=== PATIENT | male | born 1985 | race African-American/Black ===

== ENCOUNTER 2019-07-03 14:34 | Inpatient (IN) | payer MEDICARE, MEDICAID ==
[~2019-07-03] VITALS: Ht 172.7 cm; Wt 74.8 kg
--- NOTE | 2019-07-03 15:05 | NUR ---
ED Nurse Note: Pt [facility] [place] for R hip skin evaluation, open wound x 6 months. ao4. nad. vss.
--- NOTE | 2019-07-03 15:10 | NUR ---
ED Nurse Note: iv access established. blood and urine collected; sent down to lab.
[2019-07-03 15:26] VITALS: BP 114/74
[2019-07-03 15:38] LABS: BASOPHILS % (AUTO) 2.5 % (0.0-2.0); EOSINOPHILS % (AUTO) 8.8 % (0.0-3.0); HEMATOCRIT 41.2 % (42.0-52.0); HEMOGLOBIN 13.8 G/DL (14.2-18.0); LYMPHOCYTES % (AUTO) 45.6 % (20.0-45.0); MEAN CORPUSCULAR VOLUME 85 FL (80-99); MONOCYTES % (AUTO) 7.5 % (1.0-10.0); NEUTROPHILS % (AUTO) 35.6 % (45.0-75.0); PLATELET COUNT 239 K/UL (150-450); RED BLOOD COUNT 4.85 M/UL (4.70-6.10); RED CELL DISTRIBUTION WIDTH 12.5 % (11.6-14.8); WHITE BLOOD COUNT 5.2 K/UL (4.8-10.8)
--- NOTE | 2019-07-03 15:43 | Emergency Room Report ---
History of Present Illness General Chief Complaint: Skin Rash/Abscess Source: Patient Present Illness HPI 33-year-old male history of HIV history of BKA presents with chronic right hip ulcer x4 months, patient denies any acute change no fever no chills, no pain, patient was sent in from assisted living facility to evaluate his ulcer they were concerned. Patient with no pain, no aggravating or relieving factors severity is none. Allergies: Coded Allergies: EGG (Verified Allergy, Unknown, 07/03/19) RISPERIDONE (Verified Allergy, Unknown, 07/03/19) Patient History Past Medical History: see triage record Reviewed Nursing Documentation: PMH: Agreed; PSxH: Agreed Nursing Documentation-PMH Past Medical History: No History, Except For Review of Systems All Other Systems: negative except mentioned in HPI Physical Exam Vital Signs Date Time Temp Pulse Resp B/P (MAP) Pulse Ox O2 Delivery O2 Flow Rate FiO2 07/03/19 14:39 98.2 115 20 112/73 (86) 98 Room Air Sp02 EP Interpretation: reviewed, normal General Appearance: well appearing, no apparent distress, alert Head: normocephalic, atraumatic Eyes: bilateral eye PERRL, bilateral eye EOMI ENT: uvula midline, moist mucus membranes Neck: supple, thyroid normal, supple/symm/no masses Respiratory: lungs clear, no respiratory distress, no retraction, no accessory muscle use Cardiovascular #1: normal peripheral pulses, regular rate, rhythm, no edema, no gallop, no murmur Gastrointestinal: non tender, soft, no guarding, no rebound Musculoskeletal: normal inspection Neurologic: alert, oriented x3 Psychiatric: mood/affect normal Skin: warm/dry, other - Right hip: 6 x 2 cm ulcer, stage I, there is a punctate wound in the middle of it, probe did not hit bone Medical Decision Making Diagnostic Impression: Primary Impression: Decubitus ulcer of right hip Qualified Codes: L89.212 - Pressure ulcer of right hip, stage 2 Additional Impressions: UTI (urinary tract infection) Qualified Codes: N30.00 - Acute cystitis without hematuria Osteomyelitis hip ER Course Patient with chronic right hip ulcer, CRP evaluate for possible osteomyelitis, x -ray shows no acute pathology, patient denies any drainage from the site, wound was probed, does not hit bone. XR negative Patient with mildly elevated CRP. ESR may be chronically elevated hx of BKA, and surgery to right hip ulcer Patient with possible osteomyelitis Will admit patient to Dr. Araiza who works with primary doctor. Patient admitted Laboratory Tests Test 07/03/19 15:20 07/03/19 16:15 White Blood Count 5.2 K/UL (4.8-10.8) Red Blood Count 4.85 M/UL (4.70-6.10) Hemoglobin 13.8 G/DL (14.2-18.0) L Hematocrit 41.2 % (42.0-52.0) L Mean Corpuscular Volume 85 FL (80-99) Mean Corpuscular Hemoglobin 28.5 PG (27.0-31.0) Mean Corpuscular Hemoglobin Concent 33.5 G/DL (32.0-36.0) Red Cell Distribution Width 12.5 % (11.6-14.8) Platelet Count 239 K/UL (150-450) Mean Platelet Volume 8.3 FL (6.5-10.1) Neutrophils (%) (Auto) 35.6 % (45.0-75.0) L Lymphocytes (%) (Auto) 45.6 % (20.0-45.0) H Monocytes (%) (Auto) 7.5 % (1.0-10.0) Eosinophils (%) (Auto) 8.8 % (0.0-3.0) H Basophils (%) (Auto) 2.5 % (0.0-2.0) H Erythrocyte Sedimentation Rate 65 MM/HR (0-15) H Sodium Level 138 MMOL/L (136-145) Potassium Level 3.7 MMOL/L (3.5-5.1) Chloride Level 103 MMOL/L (98-107) Carbon Dioxide Level 29 MMOL/L (21-32) Anion Gap 6 mmol/L (5-15) Blood Urea Nitrogen 7 mg/dL (7-18) Creatinine 0.8 MG/DL (0.55-1.30) Estimate Glomerular Filtration Rate > 60 mL/min (>60) Glucose Level 77 MG/DL (74-106) Calcium Level 8.8 MG/DL (8.5-10.1) Total Bilirubin 0.2 MG/DL (0.2-1.0) Aspartate Amino Transferase (AST) 21 U/L (15-37) Alanine Aminotransferase (ALT) 10 U/L (12-78) L Alkaline Phosphatase 99 U/L (46-116) C-Reactive Protein, Quantitative 2.4 mg/dL (0.00-0.90) H Total Protein 8.5 G/DL (6.4-8.2) H Albumin 3.0 G/DL (3.4-5.0) L Globulin 5.5 g/dL Albumin/Globulin Ratio 0.5 (1.0-2.7) L EKG Diagnostic Results EKG Time: 15:13 EP Interpretation: NSR, rate 95, QTc 449, no acute ST elevations, normal axis Rhythm Strip Diag. Results Rhythm Strip Time: 16:48 EP Interpretation: yes Rate: 94 Rhythm: NSR, no PVC's, no ectopy Other X-Ray Diagnostic Results Other X-Ray Diagnostic Results : X-Ray ordered: Right hip # of Views/Limited Vs Complete: 2 View Indication: Pain EP Interpretation: Yes Interpretation: no fractures Impression: No acute disease Electronically Signed by: Rober Perez MD Last Vital Signs Date Time Temp Pulse Resp B/P (MAP) Pulse Ox O2 Delivery O2 Flow Rate FiO2 07/03/19 15:26 98.2 100 20 114/74 100 Room Air Disposition: ADMITTED INPATIENT Condition: Stable Rober Perez MD Jul 03, 2019 15:43
--- NOTE | 2019-07-03 15:59 | Diagnostic Imaging Report ---
Indication: Reason For Exam: PAIN Technique: One or 2 views of the right hip Comparison: none Findings: Exam is limited due to inability of the patient to cooperate optimally. No definite acute fractures. No dislocations. The joint spaces are preserved. Impression: Limited; no definite acute process
--- NOTE | 2019-07-03 16:22 | NUR ---
ED Nurse Note: lab reported blood hemolyzed; nuvia repeat labs; sent down to lab.
[2019-07-03 16:41] VITALS: BP 122/74
[2019-07-03 16:54] LABS: ANION GAP 6 mmol/L (5-15); BLOOD UREA NITROGEN 7 mg/dL (7-18); CALCIUM 8.8 MG/DL (8.5-10.1); CARBON DIOXIDE 29 MMOL/L (21-32); CHLORIDE 103 MMOL/L (98-107); CREATININE 0.8 MG/DL (0.55-1.30); POTASSIUM 3.7 MMOL/L (3.5-5.1); SODIUM 138 MMOL/L (136-145)
[2019-07-03 16:59] LABS: ALANINE AMINOTRANSFERASE 10 U/L (12-78); ALBUMIN/GLOBULIN RATIO 0.5 (1.0-2.7); ALKALINE PHOSPHATASE 99 U/L (46-116); ASPARTATE AMINO TRANSFERASE 21 U/L (15-37); BILIRUBIN,TOTAL 0.2 MG/DL (0.2-1.0)
--- NOTE | 2019-07-03 17:29 | NUR ---
ED Nurse Note: PER ERMD PT CLEARED FOR DISCHARGE. SPOKE TO [facility]; ETA 2050
--- NOTE | 2019-07-03 17:35 | NUR ---
ED Nurse Note: SPOKE TO [facility]. NOTIFIED PT CLEARED FOR DISCHARGE AND WILL BE RETURNING
[2019-07-03 18:04] LABS: APPEARANCE,URINE VERY CLOUDY; BILIRUBIN, URINE NEGATIVE (NEGATIVE); GLUCOSE, URINE (UA) NEGATIVE (NEGATIVE); KETONES,URINE NEGATIVE (NEGATIVE); LEUKOCYTE ESTERASE ,URINE 3+ (NEGATIVE); NITRITE,URINE POSITIVE (NEGATIVE); PH,URINE 9 (4.5-8.0); PROTEIN,URINE 2+ (NEGATIVE); UROBILINOGEN,URINE NORMAL MG/DL (0.0-1.0)
[2019-07-03 18:05] LABS: COLOR,URINE YELLOW
[2019-07-03] MEDS ORDERED: MIRALAX17 G2 ORAL (18:21)
[2019-07-03] MEDS ORDERED: ASCORBIC ACID500 MG ORAL (18:21)
[2019-07-03] MEDS ORDERED: ZINC50 M2 ORAL (18:21)
[2019-07-03] MEDS ORDERED: COLACE100 MG ORAL (18:21)
[2019-07-03] MEDS ORDERED: ZYPREXA10 MG ORAL (18:21)
[2019-07-03] MEDS ORDERED: MULTIVITAMINS1 EAC2 ORAL (18:21)
[2019-07-03] MEDS ORDERED: FERROUS SULFAT325 MG ORAL (18:21)
--- NOTE | 2019-07-03 18:41 | NUR ---
ED Nurse Note: VRE CRE MRSA SWABS COLLECTED; SENT DOWN TO LAB. WOUND CARE PICTURE TAKEN OF RIGHT HIP; UPLOADED. RIGHT BKA NOTED. BELONGINGS LIST COMPLETED WITH PT.
[2019-07-03] MEDS ORDERED: cefTRIAXone 1 GM in NS 55 ML IVPB ONE (18:45)
--- NOTE | 2019-07-03 19:00 | NUR ---
ED Nurse Note: CALLED FOR REPORT. RECEIVING RN, CHOL, NOT READY FOR REPORT. WILL CALL BACK.
[2019-07-03 19:15] VITALS: BP 136/78
--- NOTE | 2019-07-03 19:25 | NUR ---
TRANSFER TO FLOOR: Patient transferred to [facility] 409-1 as ordered, per MD BRANDON. Report given to PHILIPPE MCLAUGHLIN. PATIENT IN STABLE CONDITION. BELONGINGS SENT WITH PATIENT.
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
[2019-07-03 20:00] VITALS: BP 129/78
--- NOTE | 2019-07-03 20:20 | NUR ---
NURSE NOTES: Obtained new admit order from Dr. Araiza. For Wound consult physician, Dr. Araiza says "Don't worry, I will take care of it".
[2019-07-03] MEDS ORDERED: HYDROcodone/Acetamin 5/325 tab ORAL PRN (20:30)
[2019-07-03] MEDS ORDERED: HYDROcodone/Acetamin 10/325 tab ORAL PRN (20:30)
[2019-07-03] MEDS ORDERED: Miralax 17gm pkt ORAL PRN (20:45)
[2019-07-03] MEDS: Heparin 5000 units/ml inj SUBQ SCH (21:06)
[2019-07-04] VITALS: BP 124/82
[2019-07-04 04:00] VITALS: BP 131/74
[2019-07-04] MEDS: cefTRIAXone 1 GM in D5W 55 ML IVPB SCH ×2 (05:11→17:03)
[2019-07-04 06:45] LABS: BASOPHILS % (AUTO) 1.7 % (0.0-2.0); EOSINOPHILS % (AUTO) 7.7 % (0.0-3.0); HEMATOCRIT 37.2 % (42.0-52.0); HEMOGLOBIN 11.9 G/DL (14.2-18.0); LYMPHOCYTES % (AUTO) 50.9 % (20.0-45.0); MEAN CORPUSCULAR VOLUME 88 FL (80-99); MONOCYTES % (AUTO) 10.4 % (1.0-10.0); NEUTROPHILS % (AUTO) 29.2 % (45.0-75.0); PLATELET COUNT 222 K/UL (150-450); RED BLOOD COUNT 4.23 M/UL (4.70-6.10); WHITE BLOOD COUNT 4.8 K/UL (4.8-10.8)
[2019-07-04 07:08] LABS: ALANINE AMINOTRANSFERASE 9 U/L (12-78); ALBUMIN 2.6 G/DL (3.4-5.0); ALBUMIN/GLOBULIN RATIO 0.6 (1.0-2.7); ALKALINE PHOSPHATASE 87 U/L (46-116); ANION GAP 5 mmol/L (5-15); ASPARTATE AMINO TRANSFERASE 13 U/L (15-37); BILIRUBIN,TOTAL 0.1 MG/DL (0.2-1.0); BLOOD UREA NITROGEN 8 mg/dL (7-18); CALCIUM 8.6 MG/DL (8.5-10.1); CARBON DIOXIDE 28 MMOL/L (21-32); CHLORIDE 109 MMOL/L (98-107); CREATININE 0.7 MG/DL (0.55-1.30); POTASSIUM 3.5 MMOL/L (3.5-5.1); SODIUM 142 MMOL/L (136-145)
--- NOTE | 2019-07-04 07:20 | NUR ---
NURSE NOTES: Received report from PHILIPPE Rodriguez. Pt in bed, awake, talkative, no complaints of pain, no apparent distress noted, wheelchair at bedside, bed in lowest position, call light within reach.
--- NOTE | 2019-07-04 07:40 | NUR ---
HAND-OFF: Report given to Diane PAEZ.
[2019-07-04 08:00] VITALS: BP 157/93
--- NOTE | 2019-07-04 08:03 | NUR ---
NURSE NOTES: Pt is asking to go outside to smoke. RN explained to pt the no smoking policy of hospital. RN called Dr. Araiza as pt is continuing to request to go outside. Left message on Dr. Araiza's electron tube assembler physician's line.
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
[2019-07-04] MEDS: Ascorbic Acid 500mg tab ORAL SCH (10:19)
[2019-07-04] MEDS: Docusate 100mg cap ORAL SCH ×2 (10:19→17:03)
[2019-07-04] MEDS: OLANZapine 10mg tab ORAL SCH (10:19)
[2019-07-04] MEDS: Zinc Sulfate 220mg cap ORAL SCH (10:19)
[2019-07-04] MEDS: Heparin 5000 units/ml inj SUBQ SCH ×2 (10:21→20:20)
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
[2019-07-04 12:00] VITALS: BP 111/83
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
--- NOTE | 2019-07-04 15:04 | NUR ---
CASE MANAGEMENT: INITIAL REVIEW 07/03/2019 33 YO Sonya JURADO FROM [facility] CC: SKIN RASH PMHx: HIV. BKA. CHRONIC RIGHT ULCER. SI:RIGHT HIP OSTEOMYELITIS. T 98.2 HR 115 RR 20 B/P 112/73 SATS 98% ON RA CL 109 TBILI 0.1 AST 13 ALT 9 IS: NS BOLUS IV X1 PATIENT ADMITTED TO 07/03/2019 @ 1831 DCP: PATIENT TO BE DISCHARGED TO HOME ONCE MEDICALLY CLEARED. PLAN OF CARE: MRI HIP RIGHT Addendum: 07/04/19 at 1631 by Katie You INTERQUAL MET
--- NOTE | 2019-07-04 15:13 | Infectious Diseases Prog Note ---
Assessment/Plan Assessment/Plan Full consult dictated: A) 1) gram neg uti 2) right hip wound, ? osteomyelitis 3) hiv P) 1) ceftriaxone 2) f/u on MRI, labs, cd4/VL 3) check labs 4) thank you Subjective Allergies: Coded Allergies: EGG (Verified Allergy, Unknown, 07/03/19) RISPERIDONE (Verified Allergy, Unknown, 07/03/19) Objective Vital Signs Last 24 Hour Vital Signs Date Time Temp Pulse Resp B/P (MAP) Pulse Ox O2 Delivery O2 Flow Rate FiO2 07/04/19 12:00 97.7 94 19 111/83 (92) 95 07/04/19 09:00 Room Air 07/04/19 08:00 97.9 89 17 157/93 (114) 96 07/04/19 04:00 98.1 68 18 131/74 (93) 98 07/04/19 01:44 Room Air 07/04/19 00:00 97.9 81 17 124/82 (96) 98 07/03/19 21:00 Room Air 07/03/19 20:00 97.6 75 18 129/78 (95) 98 07/03/19 19:27 98.2 98 17 136/78 100 Room Air 07/03/19 19:15 98.2 98 17 136/78 100 Room Air 07/03/19 16:41 98.2 100 17 122/74 100 Room Air 07/03/19 15:26 98.2 100 20 114/74 100 Room Air Height (Feet): 5 Height (Inches): 8.00 Weight (Pounds): 165 Microbiology Date/Time Source Procedure Growth Status 07/03/19 22:30 Wound Gram Stain - Final Resulted 07/03/19 22:30 Wound Wound Culture Pending Resulted 07/03/19 15:10 Urine,Clean Catch Urine Culture - Preliminary Gram Negative Bacillus 1 Resulted 07/03/19 15:30 Rectum Received Laboratory Tests Test 07/03/19 15:20 07/03/19 16:15 07/04/19 05:35 White Blood Count 5.2 K/UL (4.8-10.8) 4.8 K/UL (4.8-10.8) Red Blood Count 4.85 M/UL (4.70-6.10) 4.23 M/UL (4.70-6.10) L Hemoglobin 13.8 G/DL (14.2-18.0) L 11.9 G/DL (14.2-18.0) L Hematocrit 41.2 % (42.0-52.0) L 37.2 % (42.0-52.0) L Mean Corpuscular Volume 85 FL (80-99) 88 FL (80-99) Mean Corpuscular Hemoglobin 28.5 PG (27.0-31.0) 28.2 PG (27.0-31.0) Mean Corpuscular Hemoglobin Concent 33.5 G/DL (32.0-36.0) 32.1 G/DL (32.0-36.0) Red Cell Distribution Width 12.5 % (11.6-14.8) 13.0 % (11.6-14.8) Platelet Count 239 K/UL (150-450) 222 K/UL (150-450) Mean Platelet Volume 8.3 FL (6.5-10.1) 7.4 FL (6.5-10.1) Neutrophils (%) (Auto) 35.6 % (45.0-75.0) L 29.2 % (45.0-75.0) L Lymphocytes (%) (Auto) 45.6 % (20.0-45.0) H 50.9 % (20.0-45.0) H Monocytes (%) (Auto) 7.5 % (1.0-10.0) 10.4 % (1.0-10.0) H Eosinophils (%) (Auto) 8.8 % (0.0-3.0) H 7.7 % (0.0-3.0) H Basophils (%) (Auto) 2.5 % (0.0-2.0) H 1.7 % (0.0-2.0) Erythrocyte Sedimentation Rate 65 MM/HR (0-15) H Sodium Level 138 MMOL/L (136-145) 142 MMOL/L (136-145) Potassium Level 3.7 MMOL/L (3.5-5.1) 3.5 MMOL/L (3.5-5.1) Chloride Level 103 MMOL/L (98-107) 109 MMOL/L (98-107) H Carbon Dioxide Level 29 MMOL/L (21-32) 28 MMOL/L (21-32) Anion Gap 6 mmol/L (5-15) 5 mmol/L (5-15) Blood Urea Nitrogen 7 mg/dL (7-18) 8 mg/dL (7-18) Creatinine 0.8 MG/DL (0.55-1.30) 0.7 MG/DL (0.55-1.30) Estimat Glomerular Filtration Rate > 60 mL/min (>60) > 60 mL/min (>60) Glucose Level 77 MG/DL (74-106) 89 MG/DL (74-106) Calcium Level 8.8 MG/DL (8.5-10.1) 8.6 MG/DL (8.5-10.1) Total Bilirubin 0.2 MG/DL (0.2-1.0) 0.1 MG/DL (0.2-1.0) L Aspartate Amino Transf (AST/SGOT) 21 U/L (15-37) 13 U/L (15-37) L Alanine Aminotransferase (ALT/SGPT) 10 U/L (12-78) L 9 U/L (12-78) L Alkaline Phosphatase 99 U/L (46-116) 87 U/L (46-116) C-Reactive Protein, Quantitative 2.4 mg/dL (0.00-0.90) H Total Protein 8.5 G/DL (6.4-8.2) H 7.3 G/DL (6.4-8.2) Albumin 3.0 G/DL (3.4-5.0) L 2.6 G/DL (3.4-5.0) L Globulin 5.5 g/dL 4.7 g/dL Albumin/Globulin Ratio 0.5 (1.0-2.7) L 0.6 (1.0-2.7) L Current Medications Medications (Trade) Dose Ordered Sig/[place] Route PRN Reason Start Time Stop Time Status Last Admin Dose Admin Acetaminophen (Tylenol) 650 mg Q4H PRN ORAL Mild Pain/Temp > 100.5 07/03/19 20:30 08/02/19 20:29 Acetaminophen/ Hydrocodone Bitart ([place] 10/325) 1 tab Q6H PRN ORAL Severe Pain (Pain Scale 7-10) 07/03/19 20:30 07/10/19 20:29 Acetaminophen/ Hydrocodone Bitart ([place] 5/325) 1 tab Q6H PRN ORAL Moderate Pain (Pain Scale 4-6) 07/03/19 20:30 07/10/19 20:29 Ascorbic Acid (Vitamin C) 500 mg DAILY ORAL 07/04/19 09:00 08/03/19 08:59 07/04/19 10:19 Ceftriaxone Sodium 1 gm/ Dextrose 55 ml @ 110 mls/hr Q12H IVPB 07/04/19 06:00 07/11/19 05:59 07/04/19 05:11 Diphenhydramine HCl (Benadryl) 25 mg Q4H PRN ORAL Itching 07/03/19 20:30 08/02/19 20:29 Docusate Sodium (Colace) 100 mg TWICE A DAY ORAL 07/04/19 09:00 08/03/19 08:59 07/04/19 10:19 Ferrous Sulfate (Feosol) 325 mg DAILY ORAL 07/04/19 09:00 08/03/19 08:59 07/04/19 10:24 Heparin Sodium (Porcine) (Heparin 5000 units/ml) 5,000 units EVERY 12 HOURS SUBQ 07/03/19 21:00 08/02/19 20:59 07/04/19 10:21 Multivitamins (Multivitamins) 1 tab DAILY ORAL 07/04/19 09:00 08/03/19 08:59 07/04/19 10:19 Olanzapine (ZyPREXA) 10 mg DAILY ORAL 07/04/19 09:00 08/03/19 08:59 07/04/19 10:19 Ondansetron HCl (Zofran) 4 mg Q6H PRN IVP Nausea & Vomiting 07/03/19 20:30 08/02/19 20:29 Polyethylene Glycol (Miralax) 17 gm DAILYPRN PRN ORAL Constipation 07/03/19 20:45 08/02/19 20:44 Zinc Sulfate (Zinc Sulfate) 220 mg DAILY ORAL 07/04/19 09:00 08/03/19 08:59 07/04/19 10:19 Charlette Andersen MD Jul 04, 2019 15:13
[2019-07-04 16:00] VITALS: BP_SYST 121; BP_SYST 126; BP_DIAS 72; BP_DIAS 76
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
--- NOTE | 2019-07-04 19:12 | NUR ---
HAND-OFF: Report given to PHILIPPE Rodriguez.
--- NOTE | 2019-07-04 19:30 | NUR ---
NURSE NOTES: Received patient in no apparent distress. A&OX4. IV site patent and intact. Dressing on right hip noted, dry and intact. Patient's own wheelchair at bedside. Bed in lowest position. Call light within reach. Will continue to monitor.
[2019-07-04 20:00] VITALS: BP 127/78
[2019-07-05] VITALS (7 sets, daily range): BP systolic 104–128; BP diastolic 59–77
[2019-07-05] MEDS: cefTRIAXone 1 GM in D5W 55 ML IVPB SCH ×2 (05:16→18:04)
[2019-07-05 06:33] LABS: BASOPHILS % (AUTO) 1.1 % (0.0-2.0); EOSINOPHILS % (AUTO) 4.8 % (0.0-3.0); HEMATOCRIT 38.4 % (42.0-52.0); HEMOGLOBIN 12.1 G/DL (14.2-18.0); MEAN CORPUSCULAR VOLUME 88 FL (80-99); MONOCYTES % (AUTO) 9.6 % (1.0-10.0); NEUTROPHILS % (AUTO) 53.5 % (45.0-75.0); PLATELET COUNT 232 K/UL (150-450); RED BLOOD COUNT 4.38 M/UL (4.70-6.10); WHITE BLOOD COUNT 6.6 K/UL (4.8-10.8)
[2019-07-05 06:54] LABS: ALANINE AMINOTRANSFERASE 7 U/L (12-78); ALBUMIN 2.6 G/DL (3.4-5.0); ALBUMIN/GLOBULIN RATIO 0.6 (1.0-2.7); ALKALINE PHOSPHATASE 82 U/L (46-116); ANION GAP 9 mmol/L (5-15); ASPARTATE AMINO TRANSFERASE 11 U/L (15-37); BILIRUBIN,TOTAL 0.1 MG/DL (0.2-1.0); BLOOD UREA NITROGEN 5 mg/dL (7-18); CALCIUM 8.4 MG/DL (8.5-10.1); CARBON DIOXIDE 25 MMOL/L (21-32); CHLORIDE 107 MMOL/L (98-107); CREATININE 0.8 MG/DL (0.55-1.30); POTASSIUM 3.1 MMOL/L (3.5-5.1); SODIUM 141 MMOL/L (136-145)
--- NOTE | 2019-07-05 07:19 | NUR ---
NURSE NOTES: PATIENT RECEIVED FROM PHILIPPE MCLAUGHLIN. PATIENT SLEEPING IN BED WITH NO PHYSICAL SIGNS OF DISTRESS. PATIENT HAS RIGHT IV SITE SALINE LOCKED, DRESSING DRY AND INTACT, NO SWELLING OR SIGNS OF INFILTRATION. BED IS IN THE LOCKED AND LOWEST POSITION WITH CALL LIGHT WITHIN REACH.
[2019-07-05] MEDS: Ascorbic Acid 500mg tab ORAL SCH (10:35)
[2019-07-05] MEDS: Docusate 100mg cap ORAL SCH ×2 (10:35→18:04)
[2019-07-05] MEDS: Zinc Sulfate 220mg cap ORAL SCH (10:35)
[2019-07-05] MEDS: OLANZapine 10mg tab ORAL SCH (10:35)
[2019-07-05] MEDS: Heparin 5000 units/ml inj SUBQ SCH ×2 (10:42→21:50)
--- NOTE | 2019-07-05 11:20 | NUR ---
NURSE NOTES: CONTACTED DR TAYLOR REGARDING PATIENTS LOW POTASSIUM LEVEL. MD ORDERS GIVEN AND WILL FOLLOW PER MD PROTOCOL.
[2019-07-05] MEDS ORDERED: Sodium Chloride for KCL Premix X 4hrs IV SCH (12:00)
[2019-07-05] MEDS: Vancomycin 1.25gm Premix q24h IVPB SCH ×2 (13:58→22:41)
--- NOTE | 2019-07-05 14:35 | NUR ---
NURSE NOTES: PATIENT RETURNED TO THE FLOOR FROM PROCEDURE, PATIENT STABLE WITH NO PHYSICAL SIGNS OF DISCOMFORT.
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
[2019-07-05] MEDS ORDERED: Isovue-300 100ml vial INJ PRN (14:45)
--- NOTE | 2019-07-05 15:51 | NUR ---
NURSE NOTES: PATIENT LEFT THE FLOOR FOR A CAT SCAN.
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
--- NOTE | 2019-07-05 17:07 | Surgery Progress Note ---
Surgery Progress Note Subjective Additional Comments doing well. comfortable labs improved exam stable pending CT results Objective Last 24 Hour Vital Signs Date Time Temp Pulse Resp B/P (MAP) Pulse Ox O2 Delivery O2 Flow Rate FiO2 07/05/19 12:00 98.6 17 114/77 (89) 95 07/05/19 09:00 98.1 76 18 128/59 (82) 98 07/05/19 09:00 Room Air 07/05/19 04:00 98.2 78 18 111/72 (85) 97 07/05/19 00:00 98.1 76 18 104/68 (80) 99 07/04/19 21:00 Room Air 07/04/19 20:00 98.0 82 18 127/78 (94) 97 I&O Intake and Output 07/04/19 07/05/19 19:00 07:00 Intake Total 900 ml 775 ml Output Total 400 ml Balance 900 ml 375 ml Intake Oral 720 ml IV Total 55 ml Other 900 ml Output Urine Total 400 ml # Voids 3 Dressing: dry Wound: clean Cardiovascular: RSR Respiratory: clear Abdomen: soft, non-tender, present bowel sounds Extremities: other Laboratory Tests Test 07/05/19 05:45 White Blood Count 6.6 K/UL (4.8-10.8) Red Blood Count 4.38 M/UL (4.70-6.10) L Hemoglobin 12.1 G/DL (14.2-18.0) L Hematocrit 38.4 % (42.0-52.0) L Mean Corpuscular Volume 88 FL (80-99) Mean Corpuscular Hemoglobin 27.7 PG (27.0-31.0) Mean Corpuscular Hemoglobin Concent 31.6 G/DL (32.0-36.0) L Red Cell Distribution Width 13.0 % (11.6-14.8) Platelet Count 232 K/UL (150-450) Mean Platelet Volume 7.5 FL (6.5-10.1) Neutrophils (%) (Auto) 53.5 % (45.0-75.0) Lymphocytes (%) (Auto) 31.0 % (20.0-45.0) Monocytes (%) (Auto) 9.6 % (1.0-10.0) Eosinophils (%) (Auto) 4.8 % (0.0-3.0) H Basophils (%) (Auto) 1.1 % (0.0-2.0) Erythrocyte Sedimentation Rate 35 MM/HR (0-15) H Sodium Level 141 MMOL/L (136-145) Potassium Level 3.1 MMOL/L (3.5-5.1) L Chloride Level 107 MMOL/L (98-107) Carbon Dioxide Level 25 MMOL/L (21-32) Anion Gap 9 mmol/L (5-15) Blood Urea Nitrogen 5 mg/dL (7-18) L Creatinine 0.8 MG/DL (0.55-1.30) Estimat Glomerular Filtration Rate > 60 mL/min (>60) Glucose Level 126 MG/DL (74-106) H Calcium Level 8.4 MG/DL (8.5-10.1) L Total Bilirubin 0.1 MG/DL (0.2-1.0) L Aspartate Amino Transf (AST/SGOT) 11 U/L (15-37) L Alanine Aminotransferase (ALT/SGPT) 7 U/L (12-78) L Alkaline Phosphatase 82 U/L (46-116) C-Reactive Protein, Quantitative 1.5 mg/dL (0.00-0.90) H Total Protein 7.1 G/DL (6.4-8.2) Albumin 2.6 G/DL (3.4-5.0) L Globulin 4.5 g/dL Albumin/Globulin Ratio 0.6 (1.0-2.7) L Plan Problems: (1) Decubitus ulcer of right hip Assessment & Plan: This is a 33-year-old male with a full-thickness right hip decubitus ulcer as received care in the past but currently has concerns for potential infection and osteomyelitis. Per report patient is on I&D in that area from an abscess in the past. Patient is wheelchair-bound and does feel pain in the location and states it does hurt at times. Currently no nausea vomiting fever chills. Labs noted. ESR and CRP elevated. Plain films noted. Imaging for evaluation of osteomyelitis pending CT results Wash right hip wound daily with normal saline, apply hydrogel impregnated gauze and dressing daily and as needed saturation/soilage Offload pressure, turn every 2 hours Patient able to turn and instructed to do so and states that he will Offload stump and heels with pillows We will follow with recommendations thank you for allowing me to participate in patient's care (2) Osteomyelitis hip Dino Huang Jul 05, 2019 17:07
--- NOTE | 2019-07-05 19:23 | NUR ---
HAND-OFF: Report given to PHILIPPE GALE .
--- NOTE | 2019-07-05 19:30 | NUR ---
NURSE NOTES: Report received from PHILIPPE Murdock. Patient AAO x 4, breathing unlabored without distress, discomfort, or sob. Denies pain at this time. IV site on right antecubital noted with loose dressing. Dressing change done. Discussed delay on the postassium with AM nurse. There was procedure and antibiotic schedule that delayed it. Both AM/PM charge nurses aware. Bed placed at the lowest with alarm, brake, and side rails up for safety. Patient refuses to be changed position at this time because he wants to sleep. Will attempt again. Call light placed within reach. Will continue to monitor and provide care as needed.
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
[2019-07-06] VITALS: BP 104/60
[2019-07-06 04:00] VITALS: BP 105/64
[2019-07-06] MEDS: Vancomycin 1.25gm Premix q24h IVPB SCH (04:54)
[2019-07-06] MEDS: cefTRIAXone 1 GM in D5W 55 ML IVPB SCH (06:27)
[2019-07-06 06:47] LABS: BASOPHILS % (AUTO) 1.7 % (0.0-2.0); EOSINOPHILS % (AUTO) 3.4 % (0.0-3.0); HEMATOCRIT 38.9 % (42.0-52.0); HEMOGLOBIN 12.3 G/DL (14.2-18.0); LYMPHOCYTES % (AUTO) 23.3 % (20.0-45.0); MEAN CORPUSCULAR VOLUME 89 FL (80-99); MONOCYTES % (AUTO) 10.3 % (1.0-10.0); NEUTROPHILS % (AUTO) 61.2 % (45.0-75.0); PLATELET COUNT 251 K/UL (150-450); RED CELL DISTRIBUTION WIDTH 13.4 % (11.6-14.8); WHITE BLOOD COUNT 10.5 K/UL (4.8-10.8)
[2019-07-06 07:13] LABS: ANION GAP 7 mmol/L (5-15); BLOOD UREA NITROGEN 3 mg/dL (7-18); CALCIUM 8.9 MG/DL (8.5-10.1); CARBON DIOXIDE 25 MMOL/L (21-32); CHLORIDE 107 MMOL/L (98-107); CREATININE 0.8 MG/DL (0.55-1.30); POTASSIUM 3.5 MMOL/L (3.5-5.1); SODIUM 139 MMOL/L (136-145)
--- NOTE | 2019-07-06 07:37 | NUR ---
NURSE NOTES: handoff received from PHILIPPE Venegas. Patient observed sleeping in bed. no physical signs of discomfort or distress. IV is saline locked. bed is in the locked position and patient has wheelchair next to bed.
--- NOTE | 2019-07-06 07:40 | NUR ---
HAND-OFF: Report given to PHILIPPE Murdock.
--- NOTE | 2019-07-06 07:44 | NUR ---
NURSE NOTES: Dr. Araiza said patient will be discharge to rehab after getting cleared by Dr. Peters and to notify him after Dr. Peters sees the patient for discharge orders. Informed this information to PHILIPPE Murdock to follow up.
[2019-07-06 08:00] VITALS: BP 103/60
--- NOTE | 2019-07-06 08:35 | Discharge Summary ---
Discharge Summary Discharge Summary _ DICT # [id number] Rick Araiza MD Jul 06, 2019 08:35
[2019-07-06] MEDS: Ascorbic Acid 500mg tab ORAL SCH (09:25)
[2019-07-06] MEDS: Docusate 100mg cap ORAL SCH (09:25)
[2019-07-06] MEDS: OLANZapine 10mg tab ORAL SCH (09:26)
[2019-07-06] MEDS: Zinc Sulfate 220mg cap ORAL SCH (09:26)
[2019-07-06] MEDS: Heparin 5000 units/ml inj SUBQ SCH (09:30)
[2019-07-06 12:00] VITALS: BP 109/65
[2019-07-06] MEDS ORDERED: Cephalexin 500mg cap ORAL SCH (13:00)
--- NOTE | 2019-07-06 13:12 | NUR ---
DISCHARGE DISPOSITION: PLEASE READ PATIENT TO BE DISCHARGED TO [facility]AB [address] T: [phone]>> CALL FOR REPORT [facility] ETA 1500 [facility] CM ATTEMPTED TO SPEAK TO MOTHER EMA CARRILLO @ [phone]>> NUMBER IS NOT IN SERVICE
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
[2019-07-06] MEDS ORDERED: CEPHALEXIN500 MG ORAL (14:33)
[2019-07-06] MEDS ORDERED: Tubing IV Secondary IV ONE (15:12)
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
--- NOTE | 2019-07-08 13:30 | Cardiology Report ---
APPROVED REPORT EKG Measurement Heart [id number] Normal sinus rhythm Normal ECG
== END 2019-07-06 15:13 | DRG 540 ==
LOC: EDBD 14:34 → EMR 14:54 → EDBEDREQ 18:14 → 4E 18:31 → EDBEDREQ 19:07 → 4E 07-04 05:26
DX: M86.8X8 Other osteomyelitis, other site (principal); N39.0 Urinary tract infection, site not specified; G82.20 Paraplegia, unspecified; G82.22 Paraplegia, incomplete; B20 Human immunodeficiency virus [HIV] disease; L03.115 Cellulitis of right lower limb; L89.219 Pressure ulcer of right hip, unspecified stage; F20.9 Schizophrenia, unspecified; Z99.3 Dependence on wheelchair; W34.00XS Accidental discharge from unspecified firearms or gun, sequela; Z89.511 Acquired absence of right leg below knee; Z88.8 Allergy status to other drugs, medicaments and biological substances; F17.200 Nicotine dependence, unspecified, uncomplicated; B96.4 Proteus (mirabilis) (morganii) as the cause of diseases classified elsewhere
CPT/HCPCS: 36415; 72193; 80048; 80053; 81003; 85025; 85651; 86140; 86360; 87070; 87081; 87086; 87181; 87205; 87536; 93005; 96361; 96365; 99285; J8499